=== PATIENT | female | born 1985 | race American Indian/Alaskan Native ===

== ENCOUNTER 2017-05-02 08:18 | Emergency (ER) | payer OTHER ==
[2017-05-02] MEDS ORDERED: MOTRIN PO ONE (10:07)
[2017-05-02] MEDS ORDERED: VALIUM PO ONE (10:07)
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
[2017-05-02 12:00] VITALS: BP 130/80
== END 2017-05-02 11:58 | disposition home or self-care (01) ==
LOC: ED 08:18
DX: M25.512 Pain in left shoulder (principal); M35.00 Sjogren syndrome, unspecified; V49.49XA Driver injured in collision with other motor vehicles in traffic accident, initial encounter; Y93.89 Activity, other specified; Y92.89 Other specified places as the place of occurrence of the external cause; Y99.8 Other external cause status
CPT/HCPCS: 99283

== ENCOUNTER 2020-09-27 10:55 | Emergency (ER) | payer MEDICAID, OTHER ==
[2020-09-27 11:05] VITALS: BP 144/94
--- NOTE | 2020-09-27 11:23 | Emergency Department Report ---
ED General Adult HPI - General Chief complaint: High BP Stated complaint: HIGH BLOOD PRESSURE/ABD PAIN Time Seen by Provider: 09/27/20 11:07 Source: patient Mode of arrival: Ambulatory Limitations: No Limitations - History of Present Illness Initial comments: Patient is a 34-year-old female presents emergency room complaints of a frontal headache that began at 6 AM this morning. She states that she took her blood pressure using an at home cuff and it was 141/107. She states that she took 2 Aleve and that her headache improved. she states he repeated her blood pressure at 9 AM and it was 142/93. She has no prior history of hypertension and does not see a primary care doctor at this time. She has never been on blood pressure medication. She states that she was having some mild light sensitivity. She denies any fever, neck stiffness, nausea, vomiting, diarrhea, recent illness, vision changes, numbness, weakness, speech disturbance, gait disturbance, chest pain, shortness of breath, dizziness, syncope, lightheadedness. She reports that she has a "mild case of lupus" and was previously on Plaquenil 5 months ago. She denies any allergies to medications. She reports that she is a social drinker and social smoker. - Related Data Previous Rx's Medication Instructions Recorded Last Taken Type Naproxen [Naprosyn] 500 mg PO BID #20 tablet 01/26/16 Unknown Rx traMADoL [Ultram 50 MG tab] 50 mg PO Q6HR PRN #15 tablet 01/26/16 Unknown Rx Cyclobenzaprine [Flexeril] 10 mg PO TID PRN #10 tablet 05/02/17 Unknown Rx Ibuprofen [Motrin] 800 mg PO Q8HR PRN #30 tablet 05/02/17 Unknown Rx Allergies Allergy/AdvReac Type Severity Reaction Status Date / Time No Known Allergies Allergy Verified 09/27/20 10:59 ED Review of Systems ROS: Stated complaint: HIGH BLOOD PRESSURE/ABD PAIN Other details as noted in HPI Comment: All other systems reviewed and negative ED Past Medical Hx - Past Medical History Additional medical history: SJOGRENS SYNDROME/ BORDERLINE HTN - Surgical History Additional Surgical History: . Cerclage,leep - Social History Smoking Status: Current Some Day Smoker Substance Use Type: Alcohol - Medications Home Medications: Home Medications Medication Instructions Recorded Confirmed Last Taken Type Naproxen [Naprosyn] 500 mg PO BID #20 tablet 01/26/16 Unknown Rx traMADoL [Ultram 50 MG tab] 50 mg PO Q6HR PRN #15 tablet 01/26/16 Unknown Rx Cyclobenzaprine [Flexeril] 10 mg PO TID PRN #10 tablet 05/02/17 Unknown Rx Ibuprofen [Motrin] 800 mg PO Q8HR PRN #30 tablet 05/02/17 Unknown Rx ED Physical Exam - General Limitations: No Limitations General appearance: alert, in no apparent distress - Head Head exam: Present: atraumatic, normocephalic - Eye Eye exam: Present: normal appearance, PERRL, EOMI. Absent: periorbital swelling, periorbital tenderness Pupils: Present: normal accommodation - ENT ENT exam: Present: mucous membranes moist - Neck Neck exam: Present: full ROM. Absent: meningismus - Respiratory Respiratory exam: Present: normal lung sounds bilaterally. Absent: respiratory distress, wheezes, rales, rhonchi, stridor, chest wall tenderness, accessory muscle use, decreased breath sounds, prolonged expiratory - Cardiovascular Cardiovascular Exam: Present: regular rate, normal rhythm, normal heart sounds. Absent: systolic murmur, diastolic murmur, rubs, gallop - Neurological Exam Neurological exam: Present: alert, oriented X3, CN II-XII intact, normal gait, other (normal finger to nose, normal heel to muñoz, 5/5 muscle strength in the BUE/BLE, sensation intact throughout, negative romberg, normal rapid alternating movements, no facial asymmetry, normal tandem walking, no focal neuro deficit). Absent: motor sensory deficit - Psychiatric Psychiatric exam: Present: normal affect, normal mood - Skin Skin exam: Present: warm, dry, intact ED Course Vital Signs 09/27/20 09/27/20 11:03 11:05 Temperature 98.1 F Pulse Rate 61 Respiratory 18 Rate Blood Pressure 144/94 O2 Sat by Pulse 100 Oximetry ED Medical Decision Making - Medical Decision Making Patient is a 34-year-old female presents emergency room complaints of a frontal headache that began at 6 AM this morning. She states that she took her blood pressure using an at home cuff and it was 141/107. She states that she took 2 Aleve and that her headache improved. she states he repeated her blood pressure at 9 AM and it was 142/93. She has no prior history of hypertension and does not see a primary care doctor at this time. She has never been on blood pressure medication. She states that she was having some mild light sensitivity. She denies any fever, neck stiffness, nausea, vomiting, diarrhea, recent illness, vision changes, numbness, weakness, speech disturbance, gait disturbance, chest pain, shortness of breath, dizziness, syncope, lightheadedness. She reports that she has a "mild case of lupus" and was previously on Plaquenil 5 months ago. She denies any allergies to medications. She reports that she is a social drinker and social smoker. Vitals are stable. Blood pressure is 144/94 in the emergency department. Patient has no neurological deficits on exam. Her headache improved after Aleve administration. Her blood pressure is only mildly elevated. Would not start blood pressure medication at this time as this is likely stage I hypertension and she should attempt lifestyle modification such as weight loss, low-sodium diet, exercise prior to beginning medication. Discussed the importance of keeping a blood pressure log and taking this to the primary care doctor. Discussed the importance of primary care evaluation. Discussed very strict return precautions in detail with patient. Advised patient May take Tylenol or ibuprofen as needed for any discomfort. Increase your water intake. Please eat a low-sodium/low salt diet. Incorporate 30 to 60 minutes of daily exercise. Please keep a blood pressure log and take this to the primary care doctor. Follow-up with your primary care doctor. Return to emergency room immediately or call 911 for any new or worsening symptoms including but not limited to worsening headache, loss of consciousness, vision changes, numbness, weakness, difficulty with speech, difficulty with walking, dizziness, chest pain, shortness of breath, etc. - Differential Diagnosis Hypertension, migraine, tension headache, cluster headache, sinusitis Critical care attestation.: If time is entered above; I have spent that time in minutes in the direct care of this critically ill patient, excluding procedure time. ED Disposition Clinical Impression: Elevated blood pressure reading Headache Qualifiers: Headache type: unspecified Headache chronicity pattern: acute headache Intractability: not intractable Qualified Code(s): R51.9 - Headache, unspecified Disposition: DC-01 TO HOME OR SELFCARE Is pt being admited?: No Does the pt Need Aspirin: No Condition: Stable Instructions: Managing Your Hypertension Additional Instructions: May take Tylenol or ibuprofen as needed for any discomfort. Increase your water intake. Please eat a low-sodium/low salt diet. Incorporate 30 to 60 minutes of daily exercise. Please keep a blood pressure log and take this to the primary care doctor. Follow-up with your primary care doctor. Return to emergency room immediately or call 911 for any new or worsening symptoms including but not limited to worsening headache, loss of consciousness, vision c hanges, numbness, weakness, difficulty with speech, difficulty with walking, dizziness, chest pain, shortness of breath, etc. Referrals: NANCY MCCURDY MD [Primary Care Provider] - 2-3 Days JAQUELINE DAVIS MD [Staff Physician] - 3-5 Days [facility] [Provider Group] - 3-5 Days [facility] [Outside] - 3-5 Days [facility], [LAB/CONTRACT] - 3-5 Days Time of Disposition: 11:24 Print Language: BENGALI
== END 2020-09-27 11:29 | disposition home or self-care (01) ==
LOC: ED 10:55
DX: R51.9 Headache, unspecified (principal); R03.0 Elevated blood-pressure reading, without diagnosis of hypertension; F17.200 Nicotine dependence, unspecified, uncomplicated; Z98.890 Other specified postprocedural states; Z79.1 Long term (current) use of non-steroidal anti-inflammatories (NSAID); Z79.899 Other long term (current) drug therapy
CPT/HCPCS: 99281